=== PATIENT | female | born 1995 | race African-American/Black ===

== ENCOUNTER 2022-05-06 15:45 | Emergency (ER) | payer MEDICAID, OTHER ==
[~2022-05-06] VITALS: Ht 167.6 cm; Wt 100.0 kg
[2022-05-06] MEDS ORDERED: ONDANSETRON HCL 4MG/2ML INJ IV STA ×2 (16:07→18:41)
[2022-05-06] MEDS ORDERED: MORPHINE SULFATE 4 MG/ML CPJ (NOT FOR IM USE) IV STA ×2 (16:07→18:41)
[2022-05-06] MEDS ORDERED: SODIUM CHLORIDE 0.9% 1,000 ML IV ONE (16:30)
[2022-05-06 17:18] LABS: BASOPHILS % 0.3 % (0.0-2.0); EOSINOPHILS % 0.2 % (0.0-5.0); HEMATOCRIT. 36.6 % (36.0-48.0); HEMOGLOBIN. 12.2 g/dL (12.0-16.0); LYMPHOCYTES % 16.9 % (20.0-50.0); MEAN CORPUSCULAR HEMOGLOBIN 27.8 pg (28.0-32.0); MEAN CORPUSCULAR VOLUME 83.6 fL (81.0-99.0); MEAN PLATELET VOLUME 7.5 fl (7.4-10.4); MONOCYTES % 5.7 % (2.0-8.0); NEUTROPHILS % 76.9 % (40.0-76.0); PLATELET 400 x1000/uL (130-400); RED BLOOD CELL COUNT 4.38 mill/uL (4.2-5.4); RED CELL DISTRIBUTION WIDTH 14.2 % (11.6-14.6)
[2022-05-06 17:25] LABS: CHLORIDE 104 mEq/L (98-107)
[2022-05-06 18:50] LABS: CLARITY URINE CLOUDY (CLEAR); COLOR URINE YELLOW (YELLOW); KETONES URINE NEGATIVE (NEGATIVE); LEUKOCYTE ESTERASE URINE TRACE (NEGATIVE); NITRITE URINE NEGATIVE (NEGATIVE); OCCULT BLOOD URINE 3+ (NEGATIVE); PROTEIN URINE 1+ (NEGATIVE); SPECIFIC GRAVITY URINE 1.015 (1.005-1.030); UROBILINOGEN URINE 0.2 E.U./dL (0.2-1.0)
[2022-05-06 18:59] VITALS: BP 136/90
[2022-05-06] MEDS ORDERED: HYDR-4001 MT (19:49)
[2022-05-06] MEDS ORDERED: CEPH500C2 MT (19:49)
== END 2022-05-06 20:17 | disposition home or self-care (01) ==
LOC: ER 15:45
DX: O03.9 Complete or unspecified spontaneous abortion without complication (principal); Z3A.01 Less than 8 weeks gestation of pregnancy; O23.31 Infections of other parts of urinary tract in pregnancy, first trimester
CPT/HCPCS: 36415; 76801; 80053; 81003; 84702; 85025; 86850; 86900; 86901; 96361; 96374; 96375; 96376; 99285; J2270; J2405; J7030; Z7610